=== PATIENT | female | born 1960 | race Caucasian/White ===

== ENCOUNTER 2018-12-10 00:32 | Observation (INO) | payer BC ==
[2018-12-10] MEDS ORDERED: Morphine 4 MG/ML VIAL ONE (02:59)
[2018-12-10 03:09] LABS: #Basophils 0.1 thou/uL (0.0-0.2); #Eosinphils 0.1 thou/uL (0.0-0.7); #Lymphocytes 1.9 thou/uL (1.20-3.40); #Monocytes 0.7 thou/uL (0.11-0.59); %Basophils 0.5 % (0.0-1.0); %Eosinophils 0.3 % (0.0-10.0); %Lymphocytes 12.9 % (21.0-51.0); %Monocytes 4.7 % (0.0-10.0); %Neutrophils 81.6 % (42.0-75.0); Hemoglobin 13.2 g/dL (12.0-16.0); Mean Corpuscular HGB CONC 33.9 g/dL (32.0-36.0); Mean Corpuscular Hemoglobin 31.7 pg (27.0-31.0); Mean Corpuscular Volume 93.6 fL (78.0-98.0); Mean Platelet Volume 7.8 fL (7.4-10.4); Platelet Count 266 thou/uL (130-400); RBC Distribution Width 11.6 % (11.5-14.5); Red Blood Cell (RBC) Count 4.18 mill/uL (4.20-5.40); White Blood Cell (WBC) Count 14.7 thou/uL (4.8-10.8)
[2018-12-10 03:37] LABS: ALT (SGPT) 24 U/L (8-55); AST (SGOT) 25 U/L (5-34); Albumin 4.6 g/dL (3.5-5.0); Alkaline Phosphatase 95 U/L (40-150); Anion Gap 12 mmol/L (10-20); BUN (Urea Nitrogen) 14 mg/dL (9.8-20.1); Bilirubin, Total 0.7 mg/dL (0.2-1.2); Calc. Creatinine Clearance 0 mL/min (70-130); Calcium 10.2 mg/dL (7.8-10.44); Carbon Dioxide 26 mmol/L (22-29); Chloride 102 mmol/L (98-107); Estimated GFR-MDRD 72; Globulin 4.1 g/dL (2.4-3.5); Glucose 126 mg/dL (70-105); Protein, Total 8.7 g/dL (6.0-8.3); Sodium 136 mmol/L (136-145)
[2018-12-10 04:21] LABS: Prothrombin Time 13.8 SEC (12.0-14.7)
--- NOTE | 2018-12-10 04:45 | HP ---
TRAUMA SURGEON: Dr. Corrales. CONSULTING PHYSICIAN: Dr. Craig. HISTORY OF PRESENT ILLNESS: The patient is a 57-year-old female, who presented to the emergency department after a mechanical fall out of a truck. The patient was crawling over the center console to open the door. Subsequently, the door swung open and the patient fell forward out of the truck and onto her left arm. She did have a 3-hour delayed presentation as she was camping and her and her family drove back to [place] and came to the emergency department. She denies numbness and tingling, decrease in sensation. She denies loss of consciousness. She does take full-dose aspirin once daily. She denies nausea, vomiting, and diarrhea. REVIEW OF SYSTEMS: All additional 10-point review of systems negative except as indicated above. PAST MEDICAL HISTORY: Paroxysmal atrial fibrillation, rate controlled on p.o. metoprolol. PAST SURGICAL HISTORY: x2, no complications. SOCIAL HISTORY: The patient lives with her family. She denies tobacco use. She drinks about one alcoholic drink a week and she denies any history of drug use. MEDICATIONS: 1. Metoprolol succinate 25 mg once a day. 2. Aspirin 325 mg once a day. ALLERGIES: NO KNOWN DRUG ALLERGIES. PHYSICAL EXAMINATION: VITAL SIGNS: Temperature 97.4, pulse 91, respirations 16, oxygen saturation 100% on room air, blood pressure 143/72. PRIMARY SURVEY: Airway intact. Adequate breath sounds bilaterally. Positive 2+ distal pulses in the bilateral radials, femorals, and DPs. GCS is 15. Gross motor and sensation are intact. No lacerations, bruising, or external bleeding noted. SECONDARY SURVEY: HEAD: Normocephalic and atraumatic. No gross palpable skull deformities or tenderness. EYES: Pupils 3 to 2 equal, round, reactive to light bilaterally. C-SPINE: No step-offs or deformities, nontender, C-collar not in place. CHEST: Some left-sided anterior chest wall tenderness near the left shoulder. No crepitus. No abrasions or ecchymosis. Equal chest movement. ABDOMEN: Soft, nontender, nondistended. PELVIS: Stable to palpation, nontender, no abrasions or ecchymosis. EXTREMITIES: Tenderness to the left shoulder and humerus with no obvious deformities, no abrasions or ecchymosis noted. 2+ pulses in the bilateral radials, femorals, and DPs. BACK/SPINE: No step-offs or deformities to palpation of the thoracic or lumbar spine. No abrasions or ecchymosis noted. NEUROLOGIC: 5/5 strength in the bilateral appeals representative, plantar flexion, and dorsiflexion. Gross normal sensation x4 extremities. LABORATORY FINDINGS: White count 14.7, hemoglobin 13.2, hematocrit 39.1, platelets 266. Sodium 136, potassium 4.0, chloride 102, carbon dioxide 26, BUN 14, creatinine 0.82. DIAGNOSTIC FINDINGS: X-ray completed of the left shoulder demonstrates a proximal humeral head fracture dislocation. ASSESSMENT: 1. Status post mechanical fall out of a pickup truck. 2. Left shoulder dislocation. 3. Left humeral head fracture. 4. History of paroxysmal atrial fibrillation. PLAN: The patient will be admitted to the surgical floor. Dr. Craig of Orthopedic Surgery has been consulted, who will see the patient in the morning and take her to the operating room for fixation of her fracture, reduction of her dislocation. She is n.p.o., normal saline at 120 an hour. We will give her pain medications with Ofirmev, p.r.n. morphine, ibuprofen, tramadol, and p.r.n. Flexeril. She is to work with Physical and Occupational Therapy postoperatively. Nursing in the emergency department to try to remove ring from left ring finger. The patient has a hard time removing it. This is not unusual for her. Her left hand is not more significantly swollen. The patient will be discussed with Dr. Corrales after this dictation. Job ID: [id number]
[2018-12-10] MEDS ORDERED: traMADol HCl 50 MG TAB PO PRN ×4 (05:40→08:49)
[2018-12-10] MEDS ORDERED: Dextrose 50% Abboject 50 ML SYRINGE SLOW IVP PRN (05:40)
[2018-12-10] MEDS ORDERED: Promethazine HCl 25 MG/ML VIAL IM PRN ×3 (05:40→10:30)
[2018-12-10] MEDS ORDERED: Ondansetron PF 4 MG/2 ML Vial IVP PRN ×2 (05:40→08:49)
[2018-12-10] MEDS ORDERED: hydrALAZINE 20 MG/ML VIAL SLOW IVP PRN (05:40)
[2018-12-10] MEDS ORDERED: Morphine 4 MG/ML VIAL SLOW IVP PRN (05:40)
[2018-12-10] MEDS ORDERED: Cyclobenzaprine 10 MG TAB PO PRN (05:40)
[2018-12-10] MEDS ORDERED: Dextrose 5% in Water 1,000 ML IV PRN (05:40)
[2018-12-10 06:28] VITALS: BMI 49.4
[2018-12-10] MEDS: Acetaminophen 1,000 MG in Premix Bag 1 BAG IVPB SCH ×2 (06:54→11:16)
[2018-12-10] MEDS: Ibuprofen 800 MG TAB PO SCH ×2 (06:54→13:55)
[2018-12-10] MEDS: Sodium Chloride 0.9% 1,000 ML IV SCH ×2 (06:54→11:24)
[2018-12-10] MEDS ORDERED: CEFAZOLIN 2 GM in Premix Bag 1 BAG IVPB SCH (07:30)
[2018-12-10] MEDS ORDERED: Famotidine/PF 20 mg/2ml Vial ONE (07:39)
--- NOTE | 2018-12-10 07:58 | RAD ---
LEFT SHOULDER 2 VIEWS: Date: 12/10/18 INDICATION: Fall with left shoulder pain. FINDINGS: There is a heavily comminuted four-part proximal humerus fracture involving the left shoulder. The hu meral head articular surface component appears to be heavily internally rotated, but is not dislocate d. The visualized left lung base is clear. IMPRESSION: Heavily comminuted proximal left humerus fracture. POS: BH
--- NOTE | 2018-12-10 08:04 | RAD ---
CHEST 1 VIEW: Date: 12/10/18 INDICATION: History of fall with left arm pain. COMPARISON: None. FINDINGS: Lungs are clear. Heart size normal. Visualized clavicle is intact. There is heavily comminuted proxim al left humeral fracture. IMPRESSION: 1. No acute cardiopulmonary abnormality. 2. Comminuted four-part proximal humerus fracture of left shoulder. POS: BH
[2018-12-10] MEDS ORDERED: Midazolam HCl 2 mg/2 ml Vial ONE (08:06)
[2018-12-10] MEDS ORDERED: Fentanyl 100 MCG/2 ML VIAL ONE ×2 (08:06→08:23)
[2018-12-10] MEDS ORDERED: Lidocaine 1% (PF) 30 ML VIAL ONE (08:10)
--- NOTE | 2018-12-10 08:16 | CON ---
DATE OF CONSULTATION: CHIEF COMPLAINT: Left shoulder pain. HISTORY OF PRESENT ILLNESS: Ms. Qiu is a 57-year-old female, who fell out of her truck yesterday. She was climbing over the console and lost her balance. She fell face forward, catching herself with her left arm. She had pain and swelling in the arm. She was unable to elevate the arm. She was seen in the emergency department and found to have a fracture dislocation of the left proximal humerus. She has been admitted to the hospital overnight. She is currently n.p.o. She is right-hand dominant. She reports being in good health at baseline. PAST MEDICAL HISTORY: Atrial fibrillation, paroxysmal, controlled with metoprolol. PAST SURGICAL HISTORY: . SOCIAL HISTORY: The patient denies tobacco, alcohol, or drug use. MEDICATIONS: 1. Metoprolol. 2. Aspirin. ALLERGIES: NO KNOWN DRUG ALLERGIES. PHYSICAL EXAMINATION: VITAL SIGNS: Temperature is 98.2, pulse is 67, respiratory rate is 18, oxygen saturation is 100%, and blood pressure is 144/82. GENERAL: She is alert, sitting upright, in no apparent distress. RESPIRATORY: Breathing comfortably. ABDOMEN: Soft, nontender, and nondistended. MUSCULOSKELETAL: The patient's left upper extremity has swelling and ecchymosis proximally. She has pain with shoulder motion. She is able to flex and extend the digits and is neurovascularly intact distally. She has a palpable radial pulse. She is resting in a sling. IMAGING DATA: X-rays of left shoulder demonstrate subluxation of the proximal humerus with four-part fracture with significant displacement. IMPRESSION: Left proximal humerus fracture, dislocation. PLAN: At this point, the patient will need to go to the operating room for open reduction and internal fixation of the left proximal humerus. We will plan for plating of the proximal humerus. She is aware of risks and benefits. Goal is to restore the anatomy of the proximal humerus. Risks have been reviewed in detail. She wants to proceed. She will remain n.p.o. She will have preoperative antibiotics. She will have appropriate postoperative rehab. Job ID: [id number]
[2018-12-10] MEDS ORDERED: Ropivacaine 0.2% 550 ML 550 ML NERVE BLCK SCH (08:49)
[2018-12-10] MEDS ORDERED: HYDROcodone/Acetaminophen 5/325 mg Tablet PO PRN ×2 (08:49)
[2018-12-10] MEDS ORDERED: Fentanyl 100 MCG/2 ML VIAL SLOW IVP PRN (08:49)
[2018-12-10] MEDS ORDERED: Zolpidem Tartrate 5 MG TAB PO PRN (08:49)
[2018-12-10] MEDS ORDERED: Polyethylene Glycol 3350 17 GM Packet PO SCH (09:00)
[2018-12-10] MEDS ORDERED: Famotidine 20 MG TAB PO SCH (09:00)
[2018-12-10] MEDS ORDERED: Senokot S 8.6-50 MG TAB PO SCH (09:00)
[2018-12-10] MEDS ORDERED: Ondansetron HCl/PF 4 MG/2 ML Vial IVP PRN (10:30)
[2018-12-10] MEDS ORDERED: Meperidine HCl/PF 25 MG/ML VIAL SLOW IVP PRN (10:30)
[2018-12-10] MEDS ORDERED: Promethazine HCl 25 MG/ML VIAL SLOW IVP PRN (10:30)
--- NOTE | 2018-12-10 10:48 | RAD ---
Exam: 2 views of the left humerus COMPARISON: 12/10/2018 Findings/impression: Limited intraoperative fluoroscopic views of the left humerus were submitted for interpretation. The patient is status post ORIF of a comminuted proximal left humerus fracture. The glenohumeral joint is well aligned.
[2018-12-10 14:31] VITALS: BP 121/78
[2018-12-10 15:44] VITALS: TEMP 98.3
[2018-12-10] MEDS ORDERED: Metoclopramide HCl 10 MG/2 ML VIAL ONE (16:26)
[2018-12-10] MEDS ORDERED: Rocuronium Bromide 10 MG/ML (10ML VIAL) ONE (16:26)
[2018-12-10] MEDS ORDERED: Ketorolac Tromethamine 30 MG/ML VIAL ONE (16:26)
[2018-12-10] MEDS ORDERED: Lidocaine 1% PF 5 ML VIAL ONE (16:26)
[2018-12-10] MEDS ORDERED: ePHEDrine 50 MG/ML VIAL ONE (16:26)
[2018-12-10] MEDS ORDERED: Glycopyrrolate 0.2 MG/ML 5 ML SYRINGE ONE (16:26)
[2018-12-10] MEDS ORDERED: Ondansetron PF 4 MG/2 ML Vial ONE (16:26)
[2018-12-10] MEDS ORDERED: PROPOFOL 200 MG/20 ML VIAL ONE (16:26)
[2018-12-10] MEDS ORDERED: Dexamethasone 20 MG/5 ML VIAL ONE (16:26)
--- NOTE | 2018-12-10 16:57 | OP ---
DATE OF PROCEDURE: 12/10/2018 PROCEDURES PERFORMED: Open reduction and internal fixation of left proximal humerus fracture. PREOPERATIVE DIAGNOSIS: Displaced left proximal humerus fracture dislocation. POSTOPERATIVE DIAGNOSIS: Displaced left proximal humerus fracture dislocation. COMPLICATIONS: None. ESTIMATED BLOOD LOSS: 150 mL. AUTOMATION CONTROLS EXPERT: Gabbie Lockhart PA-C IMPLANT: Synthes proximal humeral plate, three hole with locking and nonlocking screws. INDICATIONS: Ms. Qiu is a 57-year-old female, who fractured the left proximal humerus. She has a multipart fracture with displacement. She has been indicated for open reduction and internal fixation to restore anatomic alignment and promote healing. Goals are to avoid complications of her injury such as stiffness, posttraumatic arthritis, avascular necrosis, and others. She is at risk for these complications among others such as chronic pain, scarring, bleeding, nerve or vascular injury, need for hardware removal or shoulder replacement surgery in the future. DESCRIPTION OF PROCEDURE: Ms. Qiu was identified in the preoperative holding area. Her correct extremity was marked. She was carried to the operating room. She was positioned supine. General anesthesia was induced. She was converted to the beach chair position. The left upper extremity was prepped and draped in sterile fashion. We began the procedure with a deltopectoral approach to the shoulder. We dissected down through the subcutaneous tissues to the fascia, which was opened. We identified the cephalic vein and retracted this gently. At this point, we exposed the underlying clavipectoral fascia, which was opened. The patient's shoulder was significantly injured and traumatized. We evacuated hematoma. We then visualized the underlying fracture fragments. There was approximately six fracture fragments. The humeral head was dislocated posteriorly. This was brought back into the glenoid. We pulled the greater tuberosity and lesser tuberosity together with sutures, #5 Ethibond. We restored the alignment of the shaft and congruity to the head and tuberosity fragments. At this point, we applied K-wires holding our temporary fixation. We then applied a Synthes lateral proximal humeral plate with multiple locking and nonlocking screws. All screws were checked with tension with intraoperative x-ray. We confirmed our reduction and hardware placement. There were no complications. We thoroughly irrigated with copious lavage. We then closed with 0 Vicryl suture, 2-0 Vicryl suture, and giselle for the skin. A sterile dressing was applied. The patient was taken to the recovery room in good condition without complication. Job ID: [id number]
--- NOTE | 2018-12-11 06:37 | DIS ---
DATE OF ADMISSION: 12/10/2018 DATE OF DISCHARGE: 12/10/2018 ADMISSION DIAGNOSES: Mechanical fall out of a truck and left humeral head fracture dislocation. DISCHARGE DIAGNOSES: Mechanical fall out of a truck and left humeral head fracture dislocation. CONSULTING PHYSICIAN: Dr. Craig of Orthopedic Surgery. PROCEDURES: The patient went to the OR on December 10, 2018, and had a fixation of her right humeral head fracture dislocation. HOSPITAL COURSE: The patient is a 57-year-old female who presented to the emergency department this morning after falling out of a car and fracturing her left humeral head. She was admitted to the Trauma Service in the commercial portfolio manager, pending evaluation by Dr. Craig. Later in the morning, Dr. Craig evaluated the patient and took her to the operating room for fixation of the left humeral head. The patient also did receive a nerve block. Postoperatively, the patient's pain was well controlled. She was tolerating regular diet. Physical and Occupational Therapy saw the patient postoperatively and assured that the patient was able to get around safely. At the time of discharge, the patient's pain was well controlled. She was tolerating a regular diet. She was voiding without difficulties. DISCHARGE DISPOSITION: Home. DISCHARGE CONDITION: Satisfactory. PHYSICAL EXAMINATION: VITAL SIGNS: Temperature 97.6, pulse 67, respirations 16, oxygen saturation 96% on room air, blood pressure 121/78. GENERAL: A well-appearing middle-aged female, sitting up in bed with no signs of acute distress. CARDIAC: Regular rate and rhythm. No murmurs, gallops, or rubs. PULMONARY: Equal chest rise and fall. Clear breath sounds bilaterally. No signs of acute respiratory distress. GASTROINTESTINAL: Abdomen is soft, nontender, and nondistended. EXTREMITIES: 2+ pulses in all extremities. No significant swelling noted. Gross motor and sensation intact in right upper and bilateral lower extremities. The left upper extremity with decreased sensation and motor due to nerve block placement. NEURO: GCS is 15. Pupils equal, round, reactive to light bilaterally. DISCHARGE INSTRUCTIONS: The patient was discharged home. She is to follow up in [address] Craig. She is nonweightbearing on the left upper extremity in a sling and she is to move the arm as little as possible. She has a regular diet. No therapy needs. She has a sling for her left upper extremity. DISCHARGE MEDICATIONS: Include restarting her home metoprolol and aspirin as well as [place] prescribed by Dr. Craig. FOLLOWUP APPOINTMENTS: The patient is to follow up with Dr. Craig in 14 days. This is merely a summary of the patient's hospitalization. For full details, please see her medical record in its entirety. Job ID: [id number]
[2018-12-11] MEDS ORDERED: HYDROcodone/Acetaminophen 5/325 mg Tablet PO PRN ×2 (10:00)
== END 2018-12-10 15:45 | disposition home or self-care (01) ==
LOC: ERS 00:32 → SURG A 05:03
PROVIDERS: ADMIT Specialist; ATTEND Specialist
PROC: 0PSD04Z Reposition Left Humeral Head with Internal Fixation Device, Open Approach (ICD-10-PCS; principal; 2018-12-10)
PROC: 3E0T3BZ Introduction of Anesthetic Agent into Peripheral Nerves and Plexi, Percutaneous Approach (ICD-10-PCS; 2018-12-10)
DX: S42.292A Other displaced fracture of upper end of left humerus, initial encounter for closed fracture (principal); G89.18 Other acute postprocedural pain; I48.0 Paroxysmal atrial fibrillation; Z79.82 Long term (current) use of aspirin; Z79.899 Other long term (current) drug therapy; W17.89XA Other fall from one level to another, initial encounter
CPT/HCPCS: 36415; 71045; 76000; 80053; 80307; 85025; 85610; 93005; 96361; 96374; A4306; C1713; G0378; J0131; J0690; J1100; J1885; J2001; J2250; J2270; J2405; J2704; J2765; J2795; J3010; J3490; S0028